=== PATIENT | male | born 1975 | race Caucasian/White ===

== ENCOUNTER → 2024-08-20 | Outpatient (CLI) | payer BC, SELFPAY ==
--- NOTE | 2024-08-20 17:00 | XR_ITS ---
Examination: CT chest, without intravenous contrast. Sagittal and coronal 2-D reconstructions. Exam date and time: August 20, 2024 1705 hours INDICATION: Smoking history 30 years, coughing one year CTDI:vol (mGy) 10.2 DLP: (mGycm) 453 Technique: Multiple 3.0 mm axial sections of the chest to been obtained. Bone and lung density settings are obtained. Sagittal and coronal 2-D reconstructions have been obtained. Low dose protocols were performed. One or more of the following dose reduction techniques were used; automated exposure control, adjustment of the mA and/or KV according to patient size, use of iterative reconstruction technique. Findings: AP dimension ascending thoracic aorta 4.2 cm No paratracheal tracheobronchial or bronchopulmonary adenopathy 2 mm pulmonary nodule right upper lobe 41 2 mm, 3 mm pulmonary nodules left upper lobe 4 3 mm pulmonary nodule right upper lobe image 46 11 mm pulmonary nodule left upper lobe image 46 Calcified granuloma 10 mm left lower lobe No pneumonia or pulmonary edema No visualized liver or splenic lesion Contracted gallbladder Kidneys partially visualized no hydronephrosis No pancreatic mass IMPRESSION: Mild aneurysmal dilatation ascending thoracic aorta, AP dimension 4.2 cm Bilateral pulmonary nodules as above, with this study as baseline, recommend 6 month follow-up chest without
== END | disposition home or self-care (01) ==
PROVIDERS: PCP Internal Medicine; Referring Provider Internal Medicine; Visit Provider Internal Medicine
DX: I71.21 Aneurysm of the ascending aorta, without rupture (principal); R91.8 Other nonspecific abnormal finding of lung field
CPT/HCPCS: 71271

== ENCOUNTER → 2024-10-22 | Outpatient (CLI) | payer BC, SELFPAY ==
--- NOTE | 2024-10-22 09:30 | XR_ITS ---
EXAMINATION: PET/CT FUSION SKULL TO THIGH EXAM DATE AND TIME: October 22, [address] abdomen pelvis February 10, 2015 INDICATIONS: Diagnosis lung cancer, staging prior to treatment CTDI:vol (mGy) 5.04 DLP: (mGycm) 523 PROCEDURE: 15.16 mCi FDG was administered intravenously To allow for distribution and uptake of radiotracer, the patient was allowed to rest quietly in a shielded room. Imaging was performed on an integrated 16-slice PET/CT scanner, with scanning from the skull base to the mid thigh. Serum blood glucose at the time of the injection was measured 105 mg/dL. CT scanning was performed without oral or intravenous contrast material. FINDINGS: Head and Neck: There is no paresh hypermetabolism in the neck. The visualized portions of the brain are normal in appearance on CT. Chest: Non hypermetabolic 15 mm calcified pulmonary nodule left lower lobe Suspicious for 18 mm soft pulmonary nodule right upper lobe axial image 106, non hypermetabolic Abdomen and Pelvis: There is no paresh hypermetabolism in retroperitoneal or pelvic chains. The spleen is normal in size and FDG avidity. Musculoskeletal: Marrow uptake is within normal range. IMPRESSION: Non hypermetabolic pulmonary nodules as above, recommend high-resolution CT chest without contrast follow-up
== END | disposition home or self-care (01) ==
PROVIDERS: PCP Specialist; Referring Provider Specialist; Visit Provider Specialist
DX: R91.8 Other nonspecific abnormal finding of lung field (principal)
CPT/HCPCS: 78815; A9552

== ENCOUNTER → 2025-04-21 | Outpatient (CLI) | payer BC, SELFPAY ==
--- NOTE | 2025-04-21 13:00 | XR_ITS ---
Examination: CT chest, without intravenous contrast. Sagittal and coronal 2-D reconstructions. Exam date and time: April 21, 2025 1304 hours INDICATIONS: Subcentimeter pulmonary nodules on CT chest August 19, 2024, smoking history 30 years CTDI:vol (mGy) 9.34 DLP: (mGycm) 414 Technique: Multiple 3.0 mm axial sections of the chest to been obtained. Bone and lung density settings are obtained. Sagittal and coronal 2-D reconstructions have been obtained. Low dose protocols were performed. One or more of the following dose reduction techniques were used; automated exposure control, adjustment of the mA and/or KV according to patient size, use of iterative reconstruction technique. Findings: No thoracic aortic aneurysmal dilatation Pulmonary artery segments are not enlarged No paratracheal tracheobronchial or bronchopulmonary adenopathy Stable pulmonary nodules No new pulmonary nodules No interval pneumonia or pulmonary edema No visualized liver or splenic lesion No pancreatic mass IMPRESSION: Stable bilateral pulmonary nodules
== END | disposition home or self-care (01) ==
PROVIDERS: PCP Internal Medicine; Referring Provider Internal Medicine; Visit Provider Internal Medicine
DX: R91.8 Other nonspecific abnormal finding of lung field (principal)
CPT/HCPCS: 71271

== ENCOUNTER → 2025-09-15 | Outpatient (CLI) | payer BC, SELFPAY ==
--- NOTE | 2025-09-15 13:46 | XR_ITS ---
EXAMINATION: Ultrasound soft tissue extremity upper left thigh TECHNIQUE: Grayscale sonographic images soft tissue upper left thigh Date and time: September 15, 2025, 1402 hours INDICATION: Upper thigh palpable lump 3 weeks tender to touch FINDINGS: Hyperechoic mass in the subcutaneous tissue at the area of concern 2.1 x 8.7 x 1.4 cm most consistent with lipoma IMPRESSION: Soft tissue mass most consistent with lipoma at the area of concern, recommend 3 to 6-month follow-up ultrasound
== END | disposition home or self-care (01) ==
PROVIDERS: PCP Internal Medicine; Referring Provider Physician Assistant Medical; Visit Provider Physician Assistant Medical
DX: M79.89 Other specified soft tissue disorders (principal)
CPT/HCPCS: 76882